=== PATIENT | female | born 2000 | race Caucasian/White ===

== ENCOUNTER 2022-12-28 14:19 | Emergency (ER) | payer OTHER ==
[2022-12-28 15:08] VITALS: RESP 18; TEMP 98.7; BMI 18.0
[2022-12-28 15:52] LABS: EPITHELIAL CELLS MODERATE /hpf
[2022-12-28 16:12] LABS: HEMATOCRIT 38.5 % (32.4-45.2); HEMOGLOBIN 13.5 G/dL (10.7-15.3); MCH 29.8 pg (25.7-33.7); MEAN CELL VOLUME 84.9 fl (80-96); MEAN PLT VOLUME 8.1 fl (7.5-11.1); PLATELET COUNT 331.3 10^3/uL (134-434); RBC 4.53 10^6/uL (3.60-5.2); RDW 14.4 % (11.6-15.6); WHITE BLOOD COUNT 15.7 10^3/uL (4.0-10.8)
[2022-12-28 16:16] LABS: ALBUMIN 4.1 g/dl (3.4-5.0); BILIRUBIN,TOTAL 1.1 mg/dl (0.2-1); CALCIUM 9.2 mg/dl (8.5-10); CREATININE 0.7 mg/dl (0.55-1.3); TOT PROT 8.1 g/dl (6.4-8.2)
[2022-12-28 17:17] VITALS: BP 91/51; PULSE 63
== END 2022-12-28 17:44 | disposition home or self-care (01) ==
LOC: FER 14:19
DX: R55 Syncope and collapse (principal)
CPT/HCPCS: 36415; 70450-TC; 71046-TC-FY; 80053; 81003; 81015; 84703; 85027; 99285-25; C9803-CS; U0003; U0005